=== PATIENT | female | born 1940 | race Caucasian/White ===

== ENCOUNTER 2019-01-17 12:06 | Outpatient (REF) | payer MEDICARE, MEDICAID, SELFPAY ==
[2019-01-17 19:49] LABS: Anion Gap 7.9 mmol/L (3-11); BUN 21 mg/dL (7-18); CO2 28.1 mmol/L (21.0-32.0); CREATININE 0.87 mg/dL (0.55-1.02); Calcium 10.1 mg/dL (8.5-10.1); Chloride 105 mmol/L (98-107); Glucose 97 mg/dL (70-100); Potassium 4.8 mmol/L (3.5-5.1); Sodium 141 mmol/L (136-145)
== END 2019-01-17 12:26 ==
LOC: NCHCN 12:06
PROVIDERS: PCP Nurse Practitioner Family; Visit Provider Nurse Practitioner Family
DX: I48.91 Unspecified atrial fibrillation (principal)
CPT/HCPCS: 80048

== ENCOUNTER 2019-06-01 11:45 | Outpatient (REF) | payer MEDICARE, MEDICAID, SELFPAY ==
[2019-06-01 20:10] LABS: Anion Gap 11.2 mmol/L (3-11); BUN 17 mg/dL (7-18); CO2 25.8 mmol/L (21.0-32.0); CREATININE 0.68 mg/dL (0.55-1.02); Calcium 10.5 mg/dL (8.5-10.1); Chloride 105 mmol/L (98-107); Glucose 86 mg/dL (74-106); Potassium 4.6 mmol/L (3.5-5.1); Sodium 142 mmol/L (136-145)
== END 2019-06-01 12:05 ==
LOC: NCHCN 11:45
PROVIDERS: PCP Nurse Practitioner Family; Visit Provider Nurse Practitioner Family
DX: I10 Essential (primary) hypertension (principal)
CPT/HCPCS: 80048

== ENCOUNTER → 2019-06-22 13:29 | Outpatient (BNVA) | payer MEDICARE, MEDICAID, SELFPAY | PROVIDERS: PCP Nurse Practitioner Family; Referring Provider Nurse Practitioner Family; Visit Provider Internal Medicine Cardiovascular Disease | DX: I47.1 Supraventricular tachycardia (principal); Z45.018 Encounter for adjustment and management of other part of cardiac pacemaker; I48.91 Unspecified atrial fibrillation; I48.92 Unspecified atrial flutter | CPT/HCPCS: 93280; 99212 ==

== ENCOUNTER → 2020-11-07 09:41 | Outpatient (BNVA) | payer MEDICARE, MEDICAID, SELFPAY | PROVIDERS: PCP Nurse Practitioner Family; Referring Provider Nurse Practitioner Family; Visit Provider Physician Assistant | DX: I49.5 Sick sinus syndrome (principal); I47.1 Supraventricular tachycardia; Z45.018 Encounter for adjustment and management of other part of cardiac pacemaker | CPT/HCPCS: 93280; 99212 ==

== ENCOUNTER → 2021-05-08 10:11 | Outpatient (BNVA) | payer MEDICARE, MEDICAID, SELFPAY | PROVIDERS: PCP Nurse Practitioner Family; Referring Provider Nurse Practitioner Family; Visit Provider Physician Assistant | DX: I49.5 Sick sinus syndrome (principal); I47.1 Supraventricular tachycardia; Z45.018 Encounter for adjustment and management of other part of cardiac pacemaker | CPT/HCPCS: 93280; 99211 ==

== ENCOUNTER 2022-09-03 08:18 | Outpatient (CLI) | payer MEDICARE, MEDICAID, SELFPAY ==
--- NOTE | 2022-09-03 08:15 | RT.EKG_ITS ---
APPROVED REPORT Exam: Resting ECG Reason for Exam: afib Patient Location: O HR:68 bpm ECG Measurements Heart Rate 68 AXIS NE 44 P -71 QRSd 100 QRS 3 QT 441 T 36 QTc 470 Conclusion Atrial pacing, ventricular sensing Abnormal R-wave progression, early transition...QRS area>0 in V2 Baseline wander in lead(s) II,III,aVF,V5
== END 2022-09-03 08:19 | disposition home or self-care (01) ==
LOC: DI.CARD 08:19
PROVIDERS: PCP Nurse Practitioner Family; Visit Provider Physician Assistant
DX: I48.91 Unspecified atrial fibrillation (principal); Z95.0 Presence of cardiac pacemaker
CPT/HCPCS: 93010

== ENCOUNTER → 2022-09-03 09:36 | Outpatient (BNVA) | payer MEDICARE, MEDICAID, SELFPAY | PROVIDERS: PCP Nurse Practitioner Family; Visit Provider Physician Assistant | DX: I48.91 Unspecified atrial fibrillation (principal); Z79.01 Long term (current) use of anticoagulants; Z45.010 Encounter for checking and testing of cardiac pacemaker pulse generator [battery] | CPT/HCPCS: 93005; 93280; 99212 ==

== ENCOUNTER 2024-07-06 08:36 | Outpatient (CLI) | payer MEDICARE, MEDICAID, SELFPAY | END 2024-07-06 08:37 | disposition home or self-care (01) | LOC: DI.CARD 08:37 | PROVIDERS: PCP Nurse Practitioner Family; Visit Provider Student in an Organized Health Care Education/Training Program | CPT/HCPCS: 93010 ==

== ENCOUNTER 2024-07-20 07:55 | Outpatient (CLI) | payer MEDICARE, MEDICAID, SELFPAY ==
--- NOTE | 2024-07-20 07:45 | RT.EKG_ITS ---
APPROVED REPORT Exam: Resting ECG Reason for Exam: afib Patient Location: O HR:77 bpm ECG Measurements Heart Rate 77 AXIS VT 294 P -82 QRSd 89 QRS -13 QT 432 T 8 QTc 489 Conclusion Atrial-paced complexes...other complexes also detected Prolonged VT interval...VT >220, V-rate 50- 90 Left atrial enlargement...P, P'>60mS, <-0.15mV V1 Abnormal R-wave progression, early transition...QRS area>0 in V2 LVH with secondary repolarization abnormality...multi-LVH criteria, abnrm ST-T Borderline prolonged QT interval...QTc >485mS
== END 2024-07-20 07:56 | disposition home or self-care (01) ==
LOC: DI.CARD 07:55
PROVIDERS: PCP Nurse Practitioner Family; Visit Provider Internal Medicine Cardiovascular Disease
DX: I47.10 Supraventricular tachycardia, unspecified (principal)
CPT/HCPCS: 93010

== ENCOUNTER → 2024-07-20 12:51 | Outpatient (BNVA) | payer MEDICARE, MEDICAID, SELFPAY | PROVIDERS: PCP Nurse Practitioner Family; Visit Provider Internal Medicine Cardiovascular Disease | DX: I47.10 Supraventricular tachycardia, unspecified (principal); Z95.0 Presence of cardiac pacemaker | CPT/HCPCS: 93280 ==